=== PATIENT | male | born 1945 | race Caucasian/White ===

== ENCOUNTER 2023-03-30 09:13 | Outpatient (RCR) | payer MEDICARE, SELFPAY ==
--- NOTE | 2023-03-30 10:42 | PT.OPEX ---
PT [facility] Outpatient Eval PT [facility] Outpatient Eval Start: 03/30/23 07:49 Freq: Status: Active Protocol: Document 03/30/23 07:49 AMS (Rec: 03/30/23 10:39 AMS [id number]) E-signed By Juli Garcia PT Physical Therapy Outpatient Evaluation Insurance Information Recert Due Date 06/23/23 Insurance Name Medicare B Medical Diagnosis S/p R TKA 04/07/23 pre-op Right knee osteoarthritis Presence of artificial joint Treating Diagnosis Muscle weakness Right knee pain Difficulty walking Referring MD Nair Subjective Subjective Sung returns today with ongoing right knee pain. He reports global pain in his knee. The cortisone injection we did in November was not particularly helpful. The pain is now to the point where he would like to consider knee replacement surgery. He does not have diabetes, does not smoke cigarettes and is not on blood thinners. He has done well after left knee replacement. He only has [address] Nair, 02/18/23; confirmed by patient Patient reports to physical therapy one week prior to right total knee arthroplasty. He had the left knee replaced in [address] Nair, so he knows what to expect. Pain has been several years in duration and is getting progressively worse. He reports significant pain with weightbearing activities, and he has tried regular cortisone injections 4x/year (stopped having effect) for several years, over the counter pain meds, Aleve, and rest without long-lasting relief. He localizes pain to the whole knee that can sometimes radiate anteriorly into his leg and describes it as intermittent, sharp/quick at times, and dull ache at other times. Ice is helpful. Functional limitations/ aggravating limitations include standing, walking, squatting, and stairs, although he has none in his home. He states he will have to sit down while walking due to pain. He uses a single point cane in his right hand ever since his lumbar fusion 2 years ago. Also has intermittent sciatic nerve pain down both legs due to pinched disc near his SI joint that complicates things, and he has tried PT for this at [facility] with somewhat helpful results long -term. Denies numbness/ tingling around knee. His X- ray showed tricompartmental arthritis on right and severe lateral joint narrowing. PMHx significant for right knee arthroscopic partial medial and lateral meniscectomy, right tricompartmental chondroplasty (07/03/2017), COPD, and HTN. Current exercise prior to pain levels interfering was 7-8 miles per day on his bike/stationary bike, as he enjoys this. Goals for physical therapy include return to walking without pain after surgery. Will be doing his PT in [place] at [facility]. See pre-op note for full details regarding home setup. Pt's will be available to provide care for patient 24-7 after surgery. He owns a front-wheeled walker (several) and canes. His house is very accessible (see note above). Pain Comments 10/15 current 04/17 worst Date of Last Physician Visit 02/18/23 Date of Surgery (If applicable) 04/07/23 Current Work Status Retired Preferred Name Sung Precautions Treatment Precautions/Contraindications COPD, Hypertension Weight Bearing Status Weight Bear as Tolerated Objective Other/Pertinent Objective Knee ROM L 0-0-115 R 0-0-98*, limited by pain Hip ROM Within normal limits Strength: Hip flexors: R 4-/5 L 5/5 Knee extensors: R 3+/5 with pain, L 5/5 Knee flexors: R 4-/5 L 5/5 Ankle dorsiflexion: R 3+/5 L 5 /5 Gait/balance: Ambulates with SPC in right hand and step- through pattern, mildly antalgic on right/decreased terminal knee extension, increased forward flexion. Palpation/joint mobility: Tenderness to palpation over medial and lateral joint lines Swelling/observation: No swelling noted, mild genu valgum noted on right Assessment Assessment/Impression Patient is a 77 year old male presenting for pre-operative visit prior to right total knee arthroplasty scheduled for 04/07/23. This is a one time visit, as he will be completing outpatient PT at [facility] in [place] after surgery. PMHx significant for left TKA in 2011, right partial lateral and medial menisectomy, right tricompartmental chondroplasty , COPD, and hypertension. Upon assessment, patient demonstrates decreased knee ROM, decreased proximal hip strength, and antalgic gait pattern. These impairments lead to difficulties with walking longer than a short distance, standing, squatting, and climbing stairs. Patient will be seen post operatively at [facility] to reassess impairments that will be addressed with skilled care. Sung would greatly benefit from skilled PT in order to progress strength, ROM, and ambulation post operatively in order to perform all household and work duties without significant difficulty or discomfort. Plan of Care Rehabilitation Potential Good Physical Therapy Goals After pre-op visit: ? Patient will be independent with HEP. MET ? Patient will have knowledge on home adaptations and use of assistive devices post operatively. MET ? Patient will have knowledge of edema management. MET Coordination/Communication With Referral Source Treatment Plan/Direct Interventions Therapeutic Exercises Frequency/Duration Frequency/duration: ? 1x visit prior to surgery on DATE. Patient scheduled to start outpatient PT s/p TKA on DATE. Has HEP to start with pre-operatively. Patient Will Be Discharged From Therapy Completion of LTG(s), Independent w/HEP, Independently Progressing Evaluation Billing Untimed Code Treatment Minutes 15 Complexity Low Certification Information Initial Certification Date 03/30/23 Ending Certification Date 06/23/23 Provider Signature Shows Agreement With POC & Medical Necessity Physician Signature & Date Requested Please Sign/Date Here Physician Comment/Change : Physician NPI Number #
== END 2023-04-13 09:00 | disposition home or self-care (01) ==
PROVIDERS: PCP Physician Assistant; Visit Provider Orthopaedic Surgery
DX: M17.11 Unilateral primary osteoarthritis, right knee (principal); Z96.651 Presence of right artificial knee joint; R26.9 Unspecified abnormalities of gait and mobility; Z51.89 Encounter for other specified aftercare
CPT/HCPCS: 97110; 97161

== ENCOUNTER 2023-04-07 08:22 | Day surgery (SDC) | payer MEDICARE, SELFPAY ==
[2023-04-07] VITALS (25 sets, daily range): BP systolic 96–146; BP diastolic 67–99; PULSE 57–68; RESP 14–19; TEMP 35.9–37.1; O2SAT 87–96; BMI 31.1
[2023-04-07] MEDS: LACTATED RINGERS 1000 ML 1,000 ML 100 ML IV (09:25)
[2023-04-07] MEDS: SODIUM CHLORIDE 0.9 % (FLUSH) 10 ML SYRINGE IVF (09:25)
[2023-04-07] MEDS: ACETAMINOPHEN 500 MG TABLET 1000 MG PO (09:30)
[2023-04-07] MEDS: fentaNYL 100 MCG/2 ML inj IVP (10:27)
[2023-04-07] MEDS: MIDAZOLAM HCL 1 MG/ML inj IVP (10:27)
--- NOTE | 2023-04-07 10:39 | SUR.PREOP ---
TIME?OUT:?1026 PT/Lissa Medina RN/Dr. Ajit MDA?VERIFICATION?OF?SURGICAL?SITE right knee,?PROCEDURE,?AND?CONSENT OBTAINED?PRIOR?TO?INVASIVE?PROCEDURE.
[2023-04-07] MEDS: CEFAZOLIN 2 GM INJ IVP (10:54)
--- NOTE | 2023-04-07 11:27 | W.PM.NB ---
Nerve Block Nerve Block Time Seen by Provider: : Date Seen: 04/07/23 Type of block requested by surgeon for post-operative analgesia: adductor canal Side: right Time out performed: Yes Verification of patient name: Yes Verification of date of : Yes Site marking: site marked Name of person performing procedure: Ajit Continuous monitoring Was continuous monitoring of O2 sat, B/P, playground monitor, recorded every 15 minutes?: Yes Procedure Checklist: sterile prep, needles and gloves Ultrasound guided. Images saved: Yes Medications given in 5ml increments after negative aspiration: Ropivicaine %: 0.5 mL: 20 Needle gauge: 20 Decadron (mg): 10 Precedex (mcg): 25 Patient tolerated procedure well: Yes Additional comments: Needle noted adjacent to nerve Block Charges Block Charge (with Pro Fee): Femoral Nerve Use of Ultrasound Machine for Block: Yes- US Guidance/pain block
--- NOTE | 2023-04-07 11:27 | W.PM.NB ---
Nerve Block Nerve Block Time Seen by Provider: : Date Seen: 04/07/23 Type of block requested by surgeon for post-operative analgesia: geniculars Side: right Time out performed: Yes Verification of patient name: Yes Verification of date of : Yes Site marking: site marked Name of person performing procedure: Ajit Continuous monitoring Was continuous monitoring of O2 sat, B/P, environmental monitoring specialist, recorded every 15 minutes?: Yes Procedure Checklist: sterile prep, needles and gloves Medications given in 5ml increments after negative aspiration: Ropivicaine %: 0.5 mL: 9 Needle gauge: 25 Patient tolerated procedure well: Yes Block Charges Block Charge (with Pro Fee): Genicular Nerve Block Use of Ultrasound Machine for Block: No
--- NOTE | 2023-04-07 11:28 | W.ANESCHARGE ---
Anesthesia Charges Start Date/Time Anesthesia Start Date: 04/07/23 Anesthesia Start Time: 10:34 Stop Date/Time Anesthesia Stop Date: 04/07/23 Anesthesia Stop Time: 13:10 Summary Extremes of Age - Over 70 or under 1: MDA
--- NOTE | 2023-04-07 12:06 | CRLHL7_ITS ---
For Patients: As a result of the Cures Act, medical imaging exams and procedure reports are released immediately into your electronic medical record. You may view this report before your referring provider. If you have questions, please contact your health care provider. INDICATION: Postop TKA. TECHNIQUE: Right knee 2 views. COMPARISON: None. FINDINGS: Postoperative changes of right total knee arthroplasty with patellar resurfacing. Hardware appears intact and well positioned. No acute fracture identified. Postoperative soft tissue swelling and gas about the knee. Vascular calcifications. IMPRESSION: Intact right TKA with expected immediate postoperative findings. Dictated by Coral Mata MD @ 04/07/2023 1:42:42 PM (Electronically Signed)
--- NOTE | 2023-04-07 12:10 | PM.ORPRC ---
Procedure Note Date of procedure: 04/07/23 Procedure: PREOPERATIVE DIAGNOSIS: Right knee osteoarthritis POSTOPERATIVE DIAGNOSIS: Right knee osteoarthritis NAME OF OPERATION: Right total knee arthroplasty SURGEON: Randall Nair MD BOARD OF DIRECTORS: Flor Tamez PA-C ANESTHESIA: Spinal ESTIMATED BLOOD LOSS: 0 mL COMPLICATIONS: None SPECIMENS: None DRAINS: None PREOPERATIVE ANTIBIOTICS: Ancef 2 grams IMPLANTS: 1. J&J Attune # 8 posterior stabilized femur 2. # 8 fixed-bearing tibia 3. # 8 posterior stabilized, 5 mm fixed-bearing polyethylene 4. 41 patella INDICATIONS: The patient is a 77-year-old with a longstanding history of severe, unrelenting right knee pain secondary to end-stage (grade IV) right knee osteoarthritis. Despite appropriate nonoperative management, including activity modification, anti-inflammatories, elrd-ekq-yodmghn pain medication, bracing, physical therapy, and injections they continue to have pain and disability. Operative intervention was offered. The risks, benefits and expected outcomes were discussed in detail. These included but were not limited to: Infection, bleeding, injury to blood vessel or nerve, venous thromboembolism. All questions were answered to their satisfaction. Use of an learning support assistant was necessary throughout the case for patient positioning and safety, soft tissue retraction, and closure. PROCEDURE: Spinal anesthesia was administered. The patient was placed supine on the operating table. The learning support assistant made sure the patient was positioned appropriately. The lower extremity was prepped and draped in the usual sterile fashion. The limb was exsanguinated with the Ralph bandage. The pneumatic tourniquet was inflated to 300 mmHg. A standard anterior incision was made with the knee in flexion. Subcutaneous dissection was sharply taken through fascial layer #1. Full-thickness medial and lateral flaps were elevated. The learning support assistant retracted the soft tissues and protected them throughout the case. A standard medial parapatellar approach was made. The patella was everted. The infrapatellar fat pad was preserved. The menisci and cruciate ligaments were sharply d?brided. Marginal osteophytes were d?brided with the rongeur. The drill was used to penetrate the femoral canal. The canal was aspirated and irrigated with pulse lavage. The intramedullary femoral guide was placed for a 5-degree valgus cut, removing 12 mm off the distal femur. The saw was used to make the cut. Whitesides line and the trans epicondylar axis were marked. The femoral sizing guide was pinned onto the distal femur. Three degrees of external rotation nicely parallels the transepicondylar axis. Pins were placed for posterior referencing. The four-in-one cutting guide was pinned onto the distal femur. The anterior, posterior, and chamfer cuts were made. The learning support assistant protected the collateral ligaments. The box cutting guide was pinned. The box cuts were made. The boxed trial was placed and was an excellent fit. Drill holes for the lugs were made. Attention was then turned to the proximal tibia. The extramedullary tibial guide was placed for a neutral varus/valgus cut with 5 degrees of posterior slope, removing 2 mm based off the medial tibial surface. The learning support assistant protected the collateral ligaments and the neurovascular bundle. The saw was used to make the cut. Trial components were placed. The knee was nicely balanced in both flexion and extension. The trial components were removed. The tray was placed in appropriate rotation, parallel to our tibial cutting pins. It was pinned by the learning support assistant and the drill and the punch were used. The tray was removed. The punch was used again. We placed a bone plug in the femoral canal. Attention was then turned to the patella. [place] patellar thickness was 25 mm. The lobster claw resection guide was used with the 9.5 mm chalino. The saw was used to make the cut. Drill holes were made by the learning support assistant. The trial was placed and was an excellent fit. Cancellous surfaces were irrigated with pulse lavage and thoroughly dried by the learning support assistant. We cemented the tibial component, then the femoral component. We impacted the 5 mm polyethylene onto the tibial tray. The knee was brought into full extension. We then cemented the patellar component. Excessive cement was removed. The cement was allowed to harden. The knee was taken through a range of motion and was found to be nicely balanced in both flexion and extension. The patella tracks centrally. The learning support assistant did a three minute dilute Betadine solution soak. The learning support assistant irrigated the wound with 3 liters of normal saline via pulse lavage. The learning support assistant reapproximated the extensor mechanism with #1 Vicryl in an interrupted qmqckp-yj-ygksa fashion. The learning support assistant then ran the extensor mechanism with a #1 PDO Stratafix. The learning support assistant closed the subcutaneous tissues with a 3-0 Stratafix and the skin with a running 3-0 Stratafix in a subcuticular fashion. Glue was used to seal the skin. The learning support assistant placed a dry dressing, HAYDEE stocking, and Polar Care. Sponge and needle counts were correct x2. The patient tolerated the procedure well. There were no apparent complications. They were carefully transferred to the hospital bed and taken to the postanesthesia care unit in satisfactory condition. PLAN: The patient will be mobilized with physical therapy. Aspirin will be used for DVT prophylaxis. They will be discharged to home once medically appropriate.
--- NOTE | 2023-04-07 13:21 | P.ANES_ITS ---
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
[2023-04-07] MEDS: LACTATED RINGERS 1000 ML 1,000 ML 75 ML IV (14:12)
--- NOTE | 2023-04-07 14:52 | REH.PT ---
Pt is not appropriate for therapy this PM d/t nerve block and medication side effects.
[2023-04-07] MEDS: HYDROmorphone 0.5 mg/0.5 ml inj IVP (15:02)
[2023-04-07] MEDS: HYDROCODONE-ACETAMIN 5-325 MG 1 TAB PO ×3 (16:23→21:14)
[2023-04-07] MEDS: CEFAZOLIN 2 GM in 0.9 % SODIUM CHLORIDE Mini-bag 100 ML IVPB (17:55)
--- NOTE | 2023-04-07 19:31 | PM.IMCN1 ---
Date of Consult Patient: Other Consult date: 04/07/23 Requesting Physician: Orthopedics Primary Care Provider: Cristóbal Dixon PA-C Consult Narrative Reason for consult: Postop medical management Narrative: Romero Moore is a 77 year old male seen in consultation for management medical problems following right knee arthroplasty. Procedure was performed today by Dr. Nair. There were no operative complications. He requests medical consultation. Patient reports doing well postoperatively. He is just recovering lower extremity sensation and motion when I see him. He is having no significant pain. He has chilled and using a Kurtis Hugger to warm up. He has no nausea. Preoperatively he reports he was doing well. No recent illness or injury. I do note records from [facility] indicate that he had contacted them yesterday about obtaining a power scooter for mobility. No other issues identified on preoperative physical. He plans to return home with his for outpatient rehab. Review of Systems Narrative: No recent illness or injury. [facility] Medical History (Updated 04/07/23 @ 19:43 by Eyad Galindo MD) Lumbar spinal stenosis ?M48.061 - Spinal stenosis, lumbar region without neurogenic claudication (ICD-10) Gastroesophageal reflux ?K21.9 - Gastro-esophageal reflux disease without esophagitis (ICD-10) Peripheral neuropathy ?G62.9 - Polyneuropathy, unspecified (ICD-10) Hard of hearing ?H91.90 - Unspecified hearing loss, unspecified ear (ICD-10) Hyperlipidemia ?E78.5 - Hyperlipidemia, unspecified (ICD-10) Osteoarthritis of left hip ?M16.12 - Unilateral primary osteoarthritis, left hip (ICD-10) Osteoarthritis of right knee ?M17.11 - Unilateral primary osteoarthritis, right knee (ICD-10) Hypertension ?I10 - Essential (primary) hypertension (ICD-10) COPD (chronic obstructive pulmonary disease) ?J44.9 - Chronic obstructive pulmonary disease, unspecified (ICD-10) Surgical History (Updated 04/07/23 @ 19:39 by Eyad Galindo MD) History of tonsillectomy ?Z90.89 - Acquired absence of other organs (ICD-10) History of nasal septoplasty ?Z98.890 - Other specified postprocedural states (ICD-10) History of laminectomy ?Z98.890 - Other specified postprocedural states (ICD-10) History of nephrectomy ?Z90.5 - Acquired absence of kidney (ICD-10) History of hemorrhoidectomy ?Z98.890 - Other specified postprocedural states (ICD-10) History of arthroplasty of right knee ?Z96.651 - Presence of right artificial knee joint (ICD-10) H/O hand surgery ?Z98.890 - Other specified postprocedural states (ICD-10) H/O hernia repair ?Z98.890 - Other specified postprocedural states (ICD-10) ?Z87.19 - Personal history of other diseases of the digestive system (ICD-10) Status post total left knee replacement (03/23/12) ?Z96.652 - Presence of left artificial knee joint (ICD-10) S/P right knee arthroscopy (07/03/17) ?Z98.890 - Other specified postprocedural states (ICD-10) Status post hip surgery (12/27/20) ?Z98.890 - Other specified postprocedural states (ICD-10) Family History (Updated 04/07/23 @ 19:40 by Eyad Galindo MD) Mother Diabetes Brother Diabetes Father Coronary artery disease Social History (Updated 04/07/23 @ 19:41 by Eyad Galindo MD) Narrative: 77-year-old male lives with his in [place]. They live in a town home with no stairs. He has been walking with both a cane and a walker at home prior to surgery. He rides a bike in the summer and a stationary bike in the winter. Remote history of smoking. He drinks alcohol about once a month. is healthcare power of workers compensation attorney. 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 What is your current living situation?: I presently have a place to live In the past 12 months, utilities in danger of being shut off: no In past 12 months, lack of transportation kept you from medical appts, meetings, work, or getting things needed for daily living: no In the past 12 mos, have been you worried that your food would run out before you had money to buy more?: never true In the past 12 mos, the food you bought just didn't last and you didn't have money to buy more?: never true Highest level of school completed/degree received: high school graduate Smoking Status: Former smoker How often do you have a drink containing alcohol: monthly or less Alcohol type: beer How many standard drinks containing alcohol do you have on a typical day: 1 or 2 How often do you have six or more drinks on one occasion: Never AUDIT-C Alcohol total score: 1 Non-prescribed substance use: denies use Caffeine: Yes (1 cup coffee/day) How often does anyone, including family, friends and others, physically hurt you: never How often does anyone, including family, friends and others, insult or talk down to you: never How often does anyone, including family, friends and others, threaten you with harm: never How often does anyone, including family, friends and others, scream or curse at you: never service: No Meds Home Medications and Allergies Home Medications Medication Instructions Recorded Confirmed Type fluticasone 500 mcg-salmeterol 50 1 inh inhalation BID 11/10/22 04/07/23 History mcg/dose blistr powdr for inhalation (Wixela Inhub) fluticasone propionate 50 1 spray intranasal BID PRN 11/10/22 04/07/23 History mcg/actuation nasal spray,suspension gabapentin 300 mg capsule 900 mg PO TID 11/10/22 04/07/23 History losartan 50 mg tablet 50 mg PO BID 11/10/22 04/07/23 History montelukast 10 mg tablet 10 mg PO HS 11/10/22 04/07/23 History nitroglycerin 0.4 mg sublingual 0.4 mg sublingual Q5M PRN 11/10/22 04/07/23 History tablet omeprazole 20 mg capsule,delayed 20 mg PO DAILY 11/10/22 04/07/23 History release simvastatin 40 mg tablet 40 mg PO HS 11/10/22 04/07/23 History triamcinolone acetonide 0.1 % 1 applic topical BID PRN 11/10/22 04/07/23 History topical cream Allergies Allergy/AdvReac Type Severity Reaction Status Date / Time adhesive Allergy Rash Verified 02/18/23 15:13 oxycodone Allergy hot flashes Verified 02/18/23 15:13 Penicillins Allergy Verified 02/18/23 15:13 Exam Narrative: Exam Narrative: He is alert and appears in no distress. He is covered with a warming blanket. He is oriented to his circumstances. He is hard of hearing. Respirations are clear to auscultation. Cardiovascular: S1, S2, regular rate and rhythm. Abdomen is soft without tenderness or mass. He is just regaining motion and sensation in his feet. He has no edema. Intact pedal pulses. Const: Vital Signs, click to edit/add: Vital Signs - 24 hr 04/07/23 09:34 04/07/23 10:27 04/07/23 10:30 Temperature 98.5 F Pulse Rate 62 64 61 Respiratory Rate 16 16 16 Blood Pressure 116/81 117/88 119/79 Pulse Oximetry 94 93 96 Oxygen Delivery Me thod Room Air Nasal Cannula Nasal Cannula Oxygen Flow Rate 2 2 04/07/23 13:05 04/07/23 13:10 04/07/23 13:15 Temperature 96.7 F L Pulse Rate 62 64 61 Respiratory Rate 14 18 18 Blood Pressure 96/73 114/77 109/77 Pulse Oximetry 95 94 94 Oxygen Delivery Me thod Nasal Cannula Nasal Cannula Nasal Cannula Oxygen Flow Rate 3 3 3 04/07/23 13:20 04/07/23 13:25 04/07/23 13:30 Temperature 97.7 F Pulse Rate 62 62 59 L Respiratory Rate 19 19 18 Blood Pressure 121/80 127/79 130/84 Pulse Oximetry 93 93 93 Oxygen Delivery Me thod Nasal Cannula Nasal Cannula Nasal Cannula Oxygen Flow Rate 1 1 1 04/07/23 13:35 Temperature 96.8 F L Pulse Rate 60 Respiratory Rate 16 Blood Pressure 120/80 Pulse Oximetry 94 Oxygen Delivery Me thod Room Air Oxygen Flow Rate Documenting provider has reviewed patient's vital signs: yes Assessment and Plan Assessment and plan (1) History of arthroplasty of right knee: Problem comment: 04/07/2023 Dr. Nair. No complications Status: Acute Plan Patient will be managed with routine pain management, supportive cares and therapy. Anticipate discharge to home tomorrow. Total time spent today is 45 minutes, 30 minutes in coordination of care discussing with patient and other providers ongoing evaluation management of postoperative care and medical problems.
[2023-04-07] MEDS: LOSARTAN POTASSIUM 50 MG TABLET PO (21:13)
[2023-04-07] MEDS: SENNOSIDES 1 TAB TABLET 2 TAB PO (21:13)
[2023-04-07] MEDS: GABAPENTIN 300 MG CAPSULE PO (21:14)
[2023-04-07] MEDS: SIMVASTATIN 40 MG TABLET PO (21:14)
[2023-04-07] MEDS: GABAPENTIN 100 MG CAPSULE PO (21:14)
[2023-04-07] MEDS: MONTELUKAST 10 MG TABLET PO (21:14)
[2023-04-07] MEDS: ASPIRIN 81 MG TABLET EC PO (21:15)
[2023-04-08] MEDS: HYDROCODONE-ACETAMIN 5-325 MG 1 TAB PO ×2 (01:16→08:52)
[2023-04-08] MEDS: CEFAZOLIN 2 GM in 0.9 % SODIUM CHLORIDE Mini-bag 100 ML IVPB (01:16)
[2023-04-08] MEDS: SODIUM CHLORIDE 0.9 % (FLUSH) 10 ML SYRINGE IVF (01:18)
[2023-04-08 03:00] VITALS: BP 94/54; PULSE 62; RESP 16; TEMP 36.8; O2SAT 90
[2023-04-08] MEDS: OMEPRAZOLE 20 MG CAPSULE DR PO (06:43)
--- NOTE | 2023-04-08 07:05 | PC.NURSE ---
Shift note: Pt is doing well, SBA. Alert and oriented. Pain level has been rated at 6 and 8. Tolerated regular diet well. Dressing appears clean and dry. Cryocuff applied. Vitally stable.
[2023-04-08 07:12] LABS: Basophils Percent Auto 0.1 % (0.0-3.0); Hematocrit 45.6 % (37.0-53.0); Immature Granulocytes Pct Auto 0.2 %; Lymphocytes Percent Auto 4.6 % (20-44); Mean Corpuscular HGB Conc 33 gm/dL (32-36); Mean Corpuscular Hemoglobin 32 pg (26-34); Mean Corpuscular Volume 97 fL (80-100); Monocytes Percent Auto 6.4 % (0.0-11.0); Neutrophils Percent Auto 88.7 % (42.0-72.0); Platelet Count* 172 K/uL (140-440); RDW Coefficient of Variation % 13.1 % (11.5-15.5); Red Blood Count 4.72 m/uL (4.30-5.90)
[2023-04-08 07:26] LABS: Slide Review Reflex No
[2023-04-08 07:27] LABS: Potassium* 3.8 mmol/L (3.6-5.1); Sodium* 135 mmol/L (135-149)
[2023-04-08 07:28] LABS: INR 1.09 (0.91-1.10); Prothrombin Time 14.7 Seconds
[2023-04-08 07:30] LABS: Creatinine* 1.1 mg/dL (0.5-1.5); Est. Creatinine Clearance* 51.74; Estimated Glomerular Filt Rate 69 ml/min
[2023-04-08 07:31] LABS: Blood Urea Nitrogen* 26 mg/dL (7-30)
--- NOTE | 2023-04-08 08:27 | PM.ORPN ---
Subjective Subjective Time Seen by Provider: 07:45 Date Seen: 04/08/23 Principal diagnosis: Status post right knee replacement Interval history: Sung is comfortable this morning. He will discharge to home today. He denies nausea vomiting. Ortho Exam Narrative Exam Narrative: Alert and oriented x3. Patient is in no acute distress. Converses without labored breathing. Hearing is grossly intact. Ambulates with a walker. Examination of the right knee shows the dressing is intact. Liam bandage has been applied due to his adhesive allergy. Bilateral calves are soft and nontender. CMS intact right lower extremity. Good quad strength 5/5. Const Vital Signs, click to edit/add: Vital Signs - 24 hr 04/07/23 09:34 04/07/23 10:27 04/07/23 10:30 Temperature 98.5 F Pulse Rate 62 64 61 Pulse Rate [Pulse Oximeter] Respiratory Rate 16 16 16 Blood Pressure 116/81 117/88 119/79 Blood Pressure [Right Arm] Pulse Oximetry 94 93 96 Oxygen Delivery Method Room Air Nasal Cannula Nasal Cannula Oxygen Flow Rate 2 2 04/07/23 13:05 04/07/23 13:10 04/07/23 13:15 Temperature 96.7 F L Pulse Rate 62 64 61 Pulse Rate [Pulse Oximeter] Respiratory Rate 14 18 18 Blood Pressure 96/73 114/77 109/77 Blood Pressure [Right Arm] Pulse Oximetry 95 94 94 Oxygen Delivery Method Nasal Cannula Nasal Cannula Nasal Cannula Oxygen Flow Rate 3 3 3 04/07/23 13:20 04/07/23 13:25 04/07/23 13:30 Temperature 97.7 F Pulse Rate 62 62 59 L Pulse Rate [Pulse Oximeter] Respiratory Rate 19 19 18 Blood Pressure 121/80 127/79 130/84 Blood Pressure [Right Arm] Pulse Oximetry 93 93 93 Oxygen Delivery Method Nasal Cannula Nasal Cannula Nasal Cannula Oxygen Flow Rate 1 1 1 04/07/23 13:35 04/07/23 13:50 04/07/23 14:00 Temperature 96.8 F L 96.8 F L 97.1 F L Pulse Rate 60 61 Pulse Rate [Pulse Oximeter] 59 L Respiratory Rate 16 16 16 Blood Pressure 120/80 Blood Pressure [Right Arm] 128/81 135/88 Pulse Oximetry 94 95 Oxygen Delivery Method Room Air Room Air Room Air Oxygen Flow Rate 2 04/07/23 14:15 04/07/23 14:30 04/07/23 14:45 Temperature 97.3 F L 97.5 F L Pulse Rate Pulse Rate [Pulse Oximeter] 57 L 60 60 Respiratory Rate 16 16 16 Blood Pressure Blood Pressure [Right Arm] 118/78 123/91 H 141/87 H Pulse Oximetry 95 95 95 Oxygen Delivery Method Room Air Room Air Room Air Oxygen Flow Rate 2 2 2 04/07/23 15:00 04/07/23 15:00 04/07/23 15:30 Temperature 97.5 F L Pulse Rate Pulse Rate [Pulse Oximeter] 61 63 Respiratory Rate 16 16 Blood Pressure Blood Pressure [Right Arm] 132/86 133/86 Pulse Oximetry 95 96 95 Oxygen Delivery Method Room Air Room Air Oxygen Flow Rate 2 2 04/07/23 16:00 04/07/23 17:00 04/07/23 18:00 Temperature 97.7 F 98 F Pulse Rate Pulse Rate [Pulse Oximeter] 60 65 68 Respiratory Rate 16 16 16 Blood Pressure Blood Pressure [Right Arm] 146/90 H 146/81 H 137/91 H Pulse Oximetry 94 89 93 Oxygen Delivery Method Room Air Room Air Nasal Cannula Oxygen Flow Rate 1 1 04/07/23 19:00 04/07/23 21:11 04/07/23 21:13 Temperature 98.1 F 98.1 F 98.1 F Pulse Rate Pulse Rate [Pulse Oximeter] 67 67 Respiratory Rate 16 16 Blood Pressure Blood Pressure [Right Arm] 134/99 H 130/90 H Pulse Oximetry 93 93 Oxygen Delivery Method Room Air Room Air Oxygen Flow Rate 1 0 04/07/23 21:14 04/07/23 23:00 04/07/23 23:00 Temperature 98.1 F 98.8 F Pulse Rate Pulse Rate [Pulse Oximeter] 68 Respiratory Rate 16 Blood Pressure Blood Pressure [Right Arm] 98/67 Pulse Oximetry 91 91 Oxygen Delivery Method Room Air Oxygen Flow Rate 0 04/08/23 03:00 Temperature 98.2 F Pulse Rate Pulse Rate [Pulse Oximeter] 62 Respiratory Rate 16 Blood Pressure Blood Pressure [Right Arm] 94/54 L Pulse Oximetry 90 Oxygen Delivery Method Room Air Oxygen Flow Rate 0 Assessment and Plan Assessment and plan (1) History of arthroplasty of right knee: Problem details: 04/07/2023 Dr. Nair. No complications Status: Acute Assessment and Plan: Plan for discharge is today to home if they meet discharge criteria. DVT prophylaxis includes aspirin 81 mg twice daily x1 month, Calixto stockings x1 month may remove for 1 hr per day, frequent ambulation Remove dressing in 1 week. Observe wound and phone Orthopedics with any questions or concerns Return to clinic in 1 week for a wound check Return to clinic in 6 weeks with surgeon Minimize narcotic use. Wean off and discontinue soon as possible. Activities as tolerated. No strenuous activity. Outpatient physical therapy as scheduled. Ice and elevate the operative extremity. No restriction on ice.
[2023-04-08 08:30] VITALS: BP 126/80; PULSE 62; RESP 16; TEMP 36.8; O2SAT 93
[2023-04-08] MEDS: SENNOSIDES 1 TAB TABLET 2 TAB PO (08:53)
[2023-04-08] MEDS: ASPIRIN 81 MG TABLET EC PO (08:53)
[2023-04-08] MEDS: GABAPENTIN 300 MG CAPSULE PO (08:53)
--- NOTE | 2023-04-08 11:11 | REH.OT ---
Orders received for OT eval and treat post RTKA. The patient up and dressed, assisted by spouse prior to OT arrival. No questions regarding ADL tasks. Previous LTKA in 2011. No charge.
[2023-04-08 11:30] VITALS: BP 107/72; PULSE 70; RESP 16; TEMP 36.8; O2SAT 91
--- NOTE | 2023-04-08 14:04 | PC.NURSE ---
Discharge note: Pt alert and oriented, vitals stable, on RA. Rating pain 7/10 to R knee, PRN [place] 2 tabs admin w/ effectiveness. Cryo cuff to R knee. Dressing CDI. Pt tolerating diet well. Voiding well. IV removed, catheter intact. D/C instructions reviewed with pt and pt's 'Tomeka', questions answered. Pt given WC ride to private car, pt d/c home after clearing therapies this AM.
== END 2023-04-08 11:55 | disposition home or self-care (01) ==
LOC: OR 08:23 → MEDSURG 08:26
PROVIDERS: PCP Physician Assistant; Visit Provider Orthopaedic Surgery
PROC: (CPT 27447; principal; 2023-04-07 10:45)
DX: M17.11 Unilateral primary osteoarthritis, right knee (principal); G89.18 Other acute postprocedural pain; I10 Essential (primary) hypertension; J44.9 Chronic obstructive pulmonary disease, unspecified
CPT/HCPCS: 27447; 01402; 36415; 64447; 64454; 73560; 76942; 82565; 84132; 84295; 84520; 85025; 85610; 97110; 97116; 97162; 99100; A9270; C1776; J0690; J1100; J1170; J2250; J2371; J2405; J2704; J2795; J3010; J7120

== ENCOUNTER 2023-05-18 14:33 | Outpatient (CLI) | payer MEDICARE, SELFPAY ==
--- NOTE | 2023-05-18 14:00 | CRLHL7_ITS ---
For Patients: As a result of the Century Cures Act, medical imaging exams and procedure reports are released immediately into your electronic medical record. You may view this report before your referring provider. If you have questions, please contact your health care provider. INDICATION: s/p right TKA 04/07. pain distal to knee. (sic) TECHNIQUE: Ultrasound venous duplex lower right extremity. Compression venous exam was performed using webb-scale, color Doppler, and spectral Doppler analysis. COMPARISON: None. FINDINGS: Deep veins: Sonographic imaging demonstrates the right common femoral, deep femoral, superficial femoral, popliteal, posterior tibial, peroneal and contralateral left common femoral veins to be fully compressible with normal color Doppler blood flow. Superficial veins: Greater saphenous vein is fully compressible. Irregular superficial right popliteal fossa avascular fluid collection consistent with a Sharif`s cyst measuring approximately 2.7 x 1.8 x 5.0 cm. IMPRESSION: No evidence of right lower extremity DVT. Sharif`s cyst described above. Dictated by Bhavin Agosto MD @ 05/18/2023 4:20:42 PM (Electronically Signed)
== END 2023-05-18 14:34 | disposition home or self-care (01) ==
LOC: US 14:34
PROVIDERS: PCP Physician Assistant; Visit Provider Orthopaedic Surgery
DX: M25.561 Pain in right knee (principal); Z96.651 Presence of right artificial knee joint
CPT/HCPCS: 93971